=== PATIENT | male | born 2000 | race Caucasian/White ===

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

== ENCOUNTER 2021-12-10 07:52 | Emergency (ER) | payer BC, OTHER ==
[2021-12-10 07:56] VITALS: BP 141/88; PULSE 68; RESP 18; TEMP 98.1
[2021-12-10] MEDS ORDERED: GELATIN SPONGE,ABSORB (SMALL) 1 EACH SPONGE TOPICAL STA (08:01)
--- NOTE | 2021-12-10 08:05 | ED ---
Wound/Laceration HPI - General Chief Complaint: Wound/Laceration Stated Complaint: finger lac Time Seen by Provider: 12/10/21 07:56 Source: patient, RN notes reviewed Mode of arrival: ambulatory Limitations: no limitations - History of Present Illness Initial Comments: 21-year-old male presents emergency Department chief complaint a laceration patient states he was using a mandolin slicer when he cause laceration to his right hand third digit. He states there is skin missing, there is mild bleeding, status up-to-date. Denies any other complaints. - Related Data Home Medications Medication Instructions Recorded Confirmed No Known Home Medications 02/09/17 02/09/17 Allergies Allergy/AdvReac Type Severity Reaction Status Date / Time INSULIN (UNKNOWN TYPE) Allergy Anaphylaxis Uncoded 12/10/21 07:56 Review of Systems ROS Statement: Those systems with pertinent positive or pertinent negative responses have been documented in the HPI. ROS Other: All systems not noted in ROS Statement are negative. Past Medical History Past Medical History: No Reported History History of Any Multi-Drug Resistant Organisms: None Reported Past Surgical History: No Surgical Hx Reported Past Psychological History: No Psychological Hx Reported Smoking Status: Never smoker Past Alcohol Use History: Occasional Past Drug Use History: None Reported General Exam Limitations: no limitations General appearance: alert, in no apparent distress Head exam: Present: atraumatic, normocephalic, normal inspection Respiratory exam: Present: normal lung sounds bilaterally. Absent: respiratory distress, wheezes, rales, rhonchi, stridor Cardiovascular Exam: Present: regular rate, normal rhythm, normal heart sounds. Absent: systolic murmur, diastolic murmur, rubs, gallop, clicks Extremities exam: Present: other (Right hand third digit distal tip there is small skin avulsion, mild bleeding noted) Course Vital Signs 12/10/21 07:53 Temperature 98.1 F Pulse Rate 68 Respiratory 18 Rate Blood Pressure 141/88 O2 Sat by Pulse 100 Oximetry Medical Decision Making - Medical Decision Making Gelfoam was applied, tetanus is up-to-date. Patient was discharged in stable condition return parameters were discussed. Disposition Clinical Impression: Avulsion of skin of finger Disposition: HOME SELF-CARE Condition: Stable Instructions (If sedation given, give patient instructions): Skin Avulsion (ED) Additional Instructions: Please return to the Emergency Department if symptoms worsen or any other concerns. Is patient prescribed a controlled substance at d/c from ED?: No Referrals: None,Stated [Primary Care Provider] - 1-2 days Time of Disposition: 08:05
== END 2021-12-10 08:51 | disposition home or self-care (01) ==
LOC: EC 07:52
DX: S61.202A Unspecified open wound of right middle finger without damage to nail, initial encounter (principal); Z88.8 Allergy status to other drugs, medicaments and biological substances; W26.0XXA Contact with knife, initial encounter
CPT/HCPCS: 99282

== ENCOUNTER → 2023-11-27 | Outpatient (CLI) | payer OTHER ==
--- NOTE | 2023-11-27 16:51 | XR ---
Left hand. HISTORY: Pain following trauma. COMPARISON: None TECHNIQUE: 3 views left hand were obtained. FINDINGS: There is no fracture, dislocation, intraosseous or intra-articular abnormality. The soft tissues are normal. IMPRESSION: No significant abnormality seen.
== END | disposition home or self-care (01) ==
LOC: RADUSMAIN 16:26
PROVIDERS: ATTEND Emergency Medicine
DX: S67.10XA Crushing injury of unspecified finger(s), initial encounter (principal); M79.641 Pain in right hand; M79.642 Pain in left hand; X58.XXXA Exposure to other specified factors, initial encounter